=== PATIENT | female | born 1995 | race Caucasian/White ===

== ENCOUNTER 2022-07-25 11:41 | Outpatient (REF) | payer OTHER, SELFPAY ==
[2022-07-25 13:14] LABS: *AMPHETAMINES SCREEN URINE Negative (Negative); *BARBITURATES SCREEN URINE Negative (Negative); *BENZODIAZEPINES SCREEN URINE Negative (Negative); Cannabinoids THC Negative (Negative); Cocaine Screen,Urine Negative (Negative); METHADONE URINE SCREEN Negative (Negative); OPIATES URINE SCREEN Negative (Negative); Tricyclic Antidepressants Negative (Negative)
[2022-08-03 12:59] LABS: Buprenorphine Negative ng/mL (Cutoff: 5.0); Norbuprenorphine Negative ng/mL (Cutoff: 2.5)
== END 2022-07-25 11:42 | disposition home or self-care (01) ==
LOC: LBN 11:41
PROVIDERS: Visit Provider Advanced Practice Midwife
DX: Z34.90 Encounter for supervision of normal pregnancy, unspecified, unspecified trimester (principal)
CPT/HCPCS: 80307; 80348; 87081

== ENCOUNTER 2022-08-02 02:21 | Outpatient (CLI) | payer OTHER, SELFPAY ==
[2022-08-02 15:53] LABS: HCT 38.2 % (36.0-46.0); HGB 12.9 g/dL (11.2-15.7); MCH 30.2 pg (27.0-33.0); MCHC 33.8 % (32.0-36.0); MCV 90 fL (80-95); Platelet Count 126 10^3/uL (130-400); RBC 4.27 10^6/uL (3.93-5.22); RDW 12.2 % (11.7-14.6); RDW-SD 40.1 fL; WBC 7.62 10^3/uL (4.4-10.8)
[2022-08-04 09:48] LABS: Hep B Core Antibody Negative (Negative)
[2022-08-04 10:18] LABS: Varicella IgG Antibody Positive (See Note)
== END 2022-08-02 02:22 | disposition home or self-care (01) ==
LOC: LBO 02:21
PROVIDERS: Advanced Practice Midwife; Visit Provider Advanced Practice Midwife
DX: Z34.93 Encounter for supervision of normal pregnancy, unspecified, third trimester (principal); Z3A.36 36 weeks gestation of pregnancy
CPT/HCPCS: 36415; 85027; 86704; 86787; 86850; 86900; 86901

== ENCOUNTER 2022-08-17 12:23 | Outpatient (CLI) | payer OTHER, SELFPAY ==
[2022-08-17 11:39] LABS: HCT 38.2 % (36.0-46.0); HGB 12.8 g/dL (11.2-15.7); MCH 30.3 pg (27.0-33.0); MCHC 33.5 % (32.0-36.0); MCV 90 fL (80-95); MPV 12.3 fL (8.0-11.0); Platelet Count 116 10^3/uL (130-400); RBC 4.23 10^6/uL (3.93-5.22); RDW 12.4 % (11.7-14.6); RDW-SD 40.2 fL; WBC 7.47 10^3/uL (4.4-10.8)
== END 2022-08-17 12:24 | disposition home or self-care (01) ==
LOC: LBO 12:27
PROVIDERS: Visit Provider Advanced Practice Midwife
DX: Z34.93 Encounter for supervision of normal pregnancy, unspecified, third trimester (principal); Z3A.38 38 weeks gestation of pregnancy
CPT/HCPCS: 36415; 85027

== ENCOUNTER 2022-08-27 13:52 | Inpatient (IN) | payer OTHER, SELFPAY ==
[2022-08-27] VITALS (19 sets, daily range): BP systolic 110–157; BP diastolic 66–84; PULSE 74–110; RESP 18; TEMP 36.5–37.1; O2SAT 100
[2022-08-27 13:33] LABS: ROM Plus Positive
[2022-08-27 13:48] LABS: Abs Immature Grans 0.05 10^3/uL (0.0-0.06); Absolute Basophil Count 0.01 10^3/uL (0.0-0.2); Absolute Eosinophil Count 0.04 10^3/uL (0.0-0.7); Absolute Lymphocyte Count 1.19 10^3/uL (1.2-3.4); Absolute Monocyte Count 0.58 10^3/uL (0.1-0.8); Absolute Neutrophil Count 8.51 10^3/uL (1.2-6.7); Basophils % 0.1; Eosinophils % 0.4; HCT 36.4 % (36.0-46.0); HGB 12.3 g/dL (11.2-15.7); Immature Grans % 0.5; Lymphocytes % 11.5; MCH 30.5 pg (27.0-33.0); MCHC 33.8 % (32.0-36.0); MCV 90 fL (80-95); MPV 12.3 fL (8.0-11.0); Monocytes % 5.6; Neutrophils % 81.9; Platelet Count 110 10^3/uL (130-400); RBC 4.03 10^6/uL (3.93-5.22); RDW 12.2 % (11.7-14.6); WBC 10.38 10^3/uL (4.4-10.8)
--- NOTE | 2022-08-27 13:53 | HPE_ITS ---
Date of service: 08/27/22 Time of Service: 13:53 Assessment and Plan Assessment and plan (1) Spontaneous onset of labor: Status: Acute Assessment and plan: Admit to Center. Comfort measures. Alana has a marketing communications associate who will be attending the labor and . Anticipate . (2) SPROM (prolonged spontaneous rupture of membranes): Status: Acute Assessment and plan: Discussed augmentation of labor if labor does not progress spontaneously. (3) Gestational thrombocytopenia: Status: Acute Assessment and plan: Platelets 110. preeclampsia panel pending with urinalysis. Dr. Foster was notified of platelet count and patients admission and anesthesia was also notified. OB-HPI Labor/Delivery History of Present Illness Reason for Visit: Labour Chief Complaint: Uterine Contractions; Suspected Rupture of Membranes , Associated Signs and Symptoms of Suspected ROM: none ; Maternal Discomfort (clear fluid) , Associated Signs and Symptoms of Maternal Discomfort: contractions. TICO Calculator Estimated Delivery Date Method Current WG Current Estimate 08/27/22 LMP (Certain) 40w 0d Other Estimates 08/29/22 Ultrasound #1 39w 5d History of Present Expected Delivery Route/Plan - CNM FOB - [facility] Doesn't want to know gender, will circ if male Interested in water , has a marketing communications associate, sent preferences via portal GBS negative Specific Issues/Plan 1. Received care in [place], returned to [facility] at 35 weeks. 2. Low back pain - 2 herniated discs L4-L5, S-1, plan [employer] consult prior to delivery 3. CfDNA- WNL in [place] 4. Anterior uterine fibroid - will review [place] records from [place] when available 5. Mild GestTP at 36 wks, plts @ 126. Will discuss w/pt and recheck in 2-3 wks; [id number]/[id number] 5a. Repeat @ 40 wks and when admitted in labor; if <100,000 consult w/OB & anesthesia PFS All Active Problems (Updated 08/27/22 @ 13:59 by Adilene Mcgee CNM) SPROM (prolonged spontaneous rupture of membranes) (Acute) Spontaneous onset of labor (Acute) Gestational thrombocytopenia (Acute) Low back pain (Acute) 2 herniated disks. (Acute) Social History Smoking/Tobacco Use Status: Never Smoking risk assessment performed?: Yes Alcohol Intake: never Drug use: Never Substance use type: does not use Do you feel safe at home: Yes Do you feel safe in your relationship?: Yes History History 1 Para 0 Hx # Term Pregnancies 0 Multiple births 0 Hx # Pregnancies 0 Ectopic pregnancies 0 AB induced 0 Hx Number of Living Children 0 AB spontaneous 0 Meds Allergies and Home Medications Allergies Allergy/AdvReac Type Severity Reaction Status Date / Time No Known Allergies Allergy Verified 08/24/22 10:50 Home Medications Medication Instructions Recorded Confirmed Type Naturello 3 tab PO DAILY 01/16/22 08/24/22 History docosahexaenoic acid 200 mg See Rx Instructions PO DAILY 01/16/22 08/24/22 History capsule ( DHA) Exam Physical Exam Vital signs: Pulse BP 85 135/84 08/27/22 13:12 08/27/22 13:12 Constitutional Constitutional: mild distress Detailed Labor and Delivery Exam Effacement (%): 80 station: +1 Cervix position: posterior Consistency: soft Lockhart Score: Cervical Points Exam 0 1 2 3 Dilation Closed 1-2cm 3-4 cm 5-6cm Effacement 0-30% 40-50% 60-70% 80% Consistency Firm Medium Soft Station -3 -2 -1,0 +1,+2 Position Posterior Mid Anterior Amniotic Membrane Status: Ruptured Rupture Method: Spontaneous Amniotic Fluid: Clear Pooling: Positive ROM Plus: Positive Monitor Mode: External Contraction Frequency(min): evry 3 minutes Contraction Duration(sec): 60 Contraction Intensity: Mild/Moderate Comments: Unable to reach cervical os due to extremely posterior cervix. Fetus A Heart Rate Baseline: 130 Monitor Accelerations: 15 X 15 Monitor Decelerations: None Variability: Moderate (6-25 BPM) Presentation: Vertex Categories: Category I Date of Membrane Rupture: 08/27/22 Time of Membrane Rupture: 03:30 Respiratory Exam Respiratory Exam: Normal Cardiovascular Exam Cardiovascular Exam: Normal Abdominal Exam Abdominal Exam: Normal Exam Exam: Normal Extremities Exam Extremities Exam: Normal Skin Exam Skin Exam: Normal Psychiatric Exam Psychiatric Exam: Normal Results Abnormal Lab Findings: Abnormal Labs 08/27/22 13:30 Plt Count 110 L MPV 12.3 H Absolute Neutrophils 8.51 H Absolute Lymphocytes 1.19 L Risk Assessment Risk for Shoulder Dystocia 40 Weeks: NEGATIVE FOR: EFW> 4500 gms, Maternal Weight Gain >40lb or Post Dates Delivery Plan @ 40 wks: Risk for Pre-Eclampsia Daily Dose ASA Indicated: No Yes, if one or more: NEGATIVE FOR: Hx Pre-E/Gest HTN, Chronic HTN, Multiple Gestation, Pre-gestational DM, Renal Disease, Systemic Lupus or APA Syndrome Yes, if 2 or more: POSITIVE FOR: Nulliparity; NEGATIVE FOR: Age>= 35 yrs, >10yr btwn pregnancies, BMI>30, ethinicty, Mother/Sister w/ Pre-E or Previous IUGR Risk for Post- Hemorrhage At Risk?: No Risks Reviewed Risks Reviewed Upon Admission: Yes
[2022-08-27 13:58] LABS: ALT 32 U/L (14-59); AST 37 U/L (15-37); Albumin 2.8 g/dL (3.4-5.0); Alkaline Phosphatase 145 U/L (46-116); Anion Gap 6.9 mmol/L (3-11); BUN 13 mg/dL (7-18); Bilirubin, Total 0.4 mg/dL (0.2-1.0); CO2 27.1 mmol/L (21.0-32.0); CREATININE 0.8 mg/dL (0.55-1.02); Chloride 101 mmol/L (98-107); Estimated GFR 104.15 (mL/min/1.73m2); Glucose 82 mg/dL (74-106); Sodium 135 mmol/L (136-145); Total Protein 6.6 g/dL (6.4-8.2); Uric Acid 4.2 mg/dL (2.6-6.0)
--- NOTE | 2022-08-27 15:55 | W.OBNST ---
Date of service: 08/27/22 Time of Service: 14:00 NST Evaluation Reason for NST Reasons for Nonstress Test: OTHER, SEE COMMENT Reason for NST Other: rule out labor Gestational Age Gestational Age in Weeks and Days: 40 Weeks and 0Days Test and Monitor Explained Test/Monitor Explained: Test Explained, Monitor Explained and Patient Verbalized Understanding Vital Signs Temperature: 98.2 F NST Information Date on Monitor: 08/27/22 Time on Monitor: 13:04 Date off Monitor: 08/27/22 Time off Monitor: 13:31 Total Time on Monitor: 27 NST Interventions: PO Hydration Contraction Frequency: 2-3 minutes NST Evaluation Patient States Movement: Present FHR Baseline: 125 Variability: Moderate 6-25 bpm Accelerations: 15x15 Decelerations: None NST Results: Reactive Note Ultrasound Done: N/A. NST Note Note: NST and ROM plus. ROM reported at 0330. ROM plus positive and irregular mild/mod contractions. Admitted in early labor NST Reviewed and Verified by: Adilene Mcgee
[2022-08-27 17:09] LABS: Bilirubin Negative (Negative); Blood Negative (Negative); Clarity Sl Cloudy (Clear); Glucose Negative (Negative); Ketones Negative (Negative); Leukocyte Esterase Negative (Negative); Nitrite Negative (Negative); Urobilinogen 0.2 mg/dL (Up to 0.2)
--- NOTE | 2022-08-27 18:25 | PGE_ITS ---
Date of service: 08/27/22 Time of Service: 18:26 Pelvic Exam Dilation: 6 Effacement (%): 90 station: +1 Cervix Position: posterior Consistency: soft Contractions Monitor Mode: External Contraction Frequency(min): every 3 min Contraction Duration(sec): 60 Intensity: Strong Fetus A Monitor: External (US) Heart Rate Baseline: 110 Presentation: Vertex Variability: Moderate (6-25 BPM) Categories: Category I Accelerations: Present Decelerations: None Assessment and Plan Assessment and plan (1) Spontaneous onset of labor: Status: Acute Assessment and plan: Anticpate Darcie Warner requested the tub for comfort and is experiencing good relief. She has a strong urge to push. Objective Abnormal lab results 08/27/22 08/27/22 Range/Units 13:30 13:30 Plt Count 110 L (130-400) 10^3/uL MPV 12.3 H (8.0-11.0) fL Absolute Neutrophils 8.51 H (1.2-6.7) 10^3/uL Absolute Lymphocytes 1.19 L (1.2-3.4) 10^3/uL Sodium 135 L (136-145) mmol/L Alkaline Phosphatase 145 H (46-116) U/L Albumin 2.8 L (3.4-5.0) g/dL Temp Pulse Resp BP Pulse Ox 98.2 F 76 18 124/69 100 08/27/22 17:39 08/27/22 16:30 08/27/22 14:30 08/27/22 16:30 08/27/22 14:30 Laboratory Results WBC 10.38 10^3/uL (4.4-10.8) 08/27/22 13:30 RBC 4.03 10^6/uL (3.93-5.22) 08/27/22 13:30 Hgb 12.3 g/dL (11.2-15.7) 08/27/22 13:30 Hct 36.4 % (36.0-46.0) 08/27/22 13:30 MCV 90 fL (80-95) 08/27/22 13:30 MCH 30.5 pg (27.0-33.0) 08/27/22 13:30 MCHC 33.8 % (32.0-36.0) 08/27/22 13:30 RDW 12.2 % (11.7-14.6) 08/27/22 13:30 Plt Count 110 10^3/uL (130-400) L 08/27/22 13:30 MPV 12.3 fL (8.0-11.0) H 08/27/22 13:30 Immature Gran % 0.5 08/27/22 13:30 Neutrophils % 81.9 08/27/22 13:30 Lymphocytes % 11.5 08/27/22 13:30 Monocytes % 5.6 08/27/22 13:30 Eosinophils % 0.4 08/27/22 13:30 Basophils % 0.1 08/27/22 13:30 Nucleated RBC % 0.0 % (0.0-0.3) 08/27/22 13:30 Absolute Neutrophils 8.51 10^3/uL (1.2-6.7) H 08/27/22 13:30 Absolute Lymphocytes 1.19 10^3/uL (1.2-3.4) L 08/27/22 13:30 Absolute Monocytes 0.58 10^3/uL (0.1-0.8) 08/27/22 13:30 Absolute Eosinophils 0.04 10^3/uL (0.0-0.7) 08/27/22 13:30 Absolute Basophils 0.01 10^3/uL (0.0-0.2) 08/27/22 13:30 Sodium 135 mmol/L (136-145) L 08/27/22 13:30 Potassium 4.0 mmol/L (3.5-5.1) 08/27/22 13:30 Chloride 101 mmol/L (98-107) 08/27/22 13:30 Carbon Dioxide 27.1 mmol/L (21.0-32.0) 08/27/22 13:30 Anion Gap 6.9 mmol/L (3-11) 08/27/22 13:30 BUN 13 mg/dL (7-18) 08/27/22 13:30 Creatinine 0.8 mg/dL (0.55-1.02) 08/27/22 13:30 Est GFR (CKD-EPI 2020) 104.15 (mL/min/1.73m2) 08/27/22 13:30 Glucose 82 mg/dL (74-106) 08/27/22 13:30 Uric Acid 4.2 mg/dL (2.6-6.0) 08/27/22 13:30 Calcium 9.0 mg/dL (8.5-10.1) 08/27/22 13:30 Total Bilirubin 0.4 mg/dL (0.2-1.0) 08/27/22 13:30 AST 37 U/L (15-37) 08/27/22 13:30 ALT 32 U/L (14-59) 08/27/22 13:30 Alkaline Phosphatase 145 U/L (46-116) H 08/27/22 13:30 Total Protein 6.6 g/dL (6.4-8.2) 08/27/22 13:30 Albumin 2.8 g/dL (3.4-5.0) L 08/27/22 13:30 Urine Color Yellow (Yellow) 08/27/22 13:55 Urine Clarity Sl Cloudy (Clear) 08/27/22 13:55 Urine pH 7.0 (5-8) 08/27/22 13:55 Ur Specific [place] 1.020 (1.005-1.025) 08/27/22 13:55 Urine Protein Negative mg/dL (Negative) 08/27/22 13:55 Urine Ketones Negative mg/dL (Negative) 08/27/22 13:55 Urine Blood Negative (Negative) 08/27/22 13:55 Urine Nitrite Negative (Negative) 08/27/22 13:55 Urine Bilirubin Negative (Negative) 08/27/22 13:55 Urine Urobilinogen 0.2 mg/dL (Up to 0.2) 08/27/22 13:55 Ur Leukocyte Esterase Negative (Negative) 08/27/22 13:55 Urine Glucose Negative mg/dL (Negative) 08/27/22 13:55 Membranes Rupture Positive 08/27/22 13:05 Patient ABO/Rh O Positive 08/27/22 13:30 Antibody Screen NEGATIVE 08/27/22 13:30 Subjective Interval history since last seen: Alana used the shower and various ppositions for comfort. She has a gauge maker apprentice named Lroelei assisting her. began feeling very strong contractions. She was examined by RN and was 6-7 cms. Results Hemoglobin/Hematocrit: Hgb 12.3 g/dL (11.2-15.7) 08/27/22 13:30 Hct 36.4 % (36.0-46.0) 08/27/22 13:30 Abnormal Lab Findings: Abnormal Labs 08/27/22 08/27/22 13:30 13:30 Plt Count 110 L MPV 12.3 H Absolute Neutrophils 8.51 H Absolute Lymphocytes 1.19 L Sodium 135 L Alkaline Phosphatase 145 H Albumin 2.8 L
[2022-08-27] MEDS: Oxytocin 10 UNITS/ML VIAL IM (19:54)
[2022-08-27] MEDS: Lidocaine 1% Multi-Dose 20 ML VIAL IJ (20:00)
--- NOTE | 2022-08-27 20:41 | OBVDS_ITS ---
Date of service: 08/27/22 Time of Service: 20:41 OB Labor/ Delivery Information Baby A Delivery Delivery Method: Spontaneaous Presentation: Vertex Cephalic Position: Vertex Vertex Position: Left Occipital Anterior Amniotic Fluid: Clear Estimated Blood Loss: 250 Delivery Outcome: Liveborn Complications: none Transferred: Remains with Mother Note: Alana used the tub with good effect. She moved to the toilet and began bearing down. FHTs 110s during first stage of labor. FHTs 105-110 in second stage by doppler. Alana moved to the bed to be fully dilated and +3 station and continued pushing. Second stage huddle was done. Spontaneous delivery of male infant delivered in ELLEN position. Baby was placed on mother's abdomen and dried and stimulated. Spontaneous cry. Cord was clamped and cut by the baby's father after it stopped pulsing . The placenta delivered spontaneously and appears to by intact with a three vessel cord. Pitocin 10 units IM was administered after delivery of the placenta. The perineum was inspected and a first degree laceration was repaired under local anesthetic which Alana tolerated well . The baby did breastfeed. After delivery, Mother and baby and father of the baby were stable and bonding well in the delivery room and there were no complications. Providers Nurse Pharmacy Technician Instructor: Adilene Mcgee Nurse: Denise Boyer Nurse: Tracey Fitzpatrick Labor/Delivery Information Number of Babies in Womb: 1 Steroids Given: None Reason Steroids Not Administered: N/A Group Beta Strep: Negative Rubella Status: Immune Varicella Immunity: Immune Born En Route: No Maternal Complications: Premature Rupture of Membranes (16+ hours) Stages of Labor Onset of Labor Date: 08/27/22 Onset of Labor Time: 03:15 Complete Dilatation Date: 08/27/22 Complete Dilatation Time: 19:20 Labor - Stage 1 Duration: 16 hours and 5 minutes ROM Baby A: 08/27/22 ROM Baby A: 03:30 ROM Total Time- Baby A: [id number] Delivery Date-Baby A: 08/27/22 Infant Delivery Time-Baby A: 19:50 Labor Stage 2 Duration: 30 minutes Placenta Delivery Date-Baby A: 08/27/22 Placenta Delivery Time-Baby A: 20:00 Labor-Stage 3 Duration: 10 minutes Total Length of Labor-Baby A: 16 hours and 35 minutes Placenta Cultured: No Placenta Status: Delivered Baby A Gender: Male Gestational Status: Term (39-41.6 wks) Gestational Age in Weeks/Days: 40 Weeks and 0 Days
--- NOTE | 2022-08-27 20:47 | W.OBNST ---
Date of service: 08/27/22 Time of Service: 20:47 NST Evaluation Reason for NST Reasons for Nonstress Test: OTHER, SEE COMMENT Reason for NST Other: rule out labor Gestational Age Gestational Age in Weeks and Days: 40 Weeks and 0Days Test and Monitor Explained Test/Monitor Explained: Test Explained, Monitor Explained and Patient Verbalized Understanding Vital Signs Temperature: 98.2 F NST Information Date on Monitor: 08/27/22 Time on Monitor: 13:04 Date off Monitor: 08/27/22 Time off Monitor: 13:31 Total Time on Monitor: 27 NST Interventions: PO Hydration Contraction Frequency: 2-3 minutes NST Evaluation Patient States Movement: Present FHR Baseline: 125 Variability: Moderate 6-25 bpm Accelerations: 15x15 Decelerations: None NST Results: Reactive Note Ultrasound Done: N/A. NST Note Note: Alana reported strong contractions at home and a small amount of fluid leaking. ROM plus is neg. neg pooling. Her contractions have stopped. She declines an exam tonight. Reviewed signs of labor. RTO for visit this week NST Reviewed and Verified by: Adilene Mcgee
[2022-08-27] MEDS: Hamamelis Leaf/Glycerin 100 EACH BOX PR (21:49)
[2022-08-27] MEDS: Dibucaine 1% 28 GM TUBE TP (21:50)
[2022-08-28] MEDS: Ibuprofen 600 MG TAB PO (00:14)
[2022-08-28] MEDS: Acetaminophen 325 MG TAB 650 MG PO (00:14)
[2022-08-28 04:00] VITALS: BP 99/50; PULSE 77; RESP 16; TEMP 36.9
[2022-08-28 06:59] LABS: HCT 34.6 % (36.0-46.0); HGB 12.1 g/dL (11.2-15.7); MCH 30.9 pg (27.0-33.0); MCV 89 fL (80-95); MPV 12.1 fL (8.0-11.0); Platelet Count 120 10^3/uL (130-400); RBC 3.91 10^6/uL (3.93-5.22); RDW 12.2 % (11.7-14.6); RDW-SD 39.6 fL; WBC 15.62 10^3/uL (4.4-10.8)
[2022-08-28 10:49] VITALS: BP 110/60; PULSE 78; RESP 17; TEMP 37
--- NOTE | 2022-08-28 14:53 | W.PM.OBPNV1 ---
Date of service: 08/28/22 Time of Service: 14:53 Assessment and Plan Assessment and plan (1) Term of male : Status: Acute Assessment and plan: Caring for baby independently. Pain is managed well with oral analgesics. Voiding without difficulty. well. A - stable mother and baby , Post day 1 P - Discharge to home tomorrow. Routine post instructions. [facility] (2) Gestational thrombocytopenia: Status: Acute Assessment and plan: Platelets 120 today. No follow up indicated until post . Subjective Subjective Interval history: Alana feels well and is her baby without difficulty. She is pleased with her experience Patient's Mood: excellent baby status: Doing well and Nursing well [place] feeding status: Exclusively breast feeding Exam Physical Exam Vital signs: Temp Pulse Resp BP Pulse Ox 98.6 F 78 17 110/60 100 08/28/22 10:49 08/28/22 10:49 08/28/22 10:49 08/28/22 10:49 08/27/22 14:30 Respiratory Exam Respiratory Exam: Normal Cardiovascular Exam Cardiovascular Exam: Normal Fundal Exam Fundus: Below Umbilicus and Firm Exam Perineum: Repair Intact External: Absent erythema or ecchymosis Extremities Exam Extremity Exam: Normal Skin Exam Skin Exam: Normal Psychiatric Exam Psychiatric Exam: Normal Results Hemoglobin/Hematocrit: Hgb 12.1 g/dL (11.2-15.7) 08/28/22 06:40 Hct 34.6 % (36.0-46.0) L 08/28/22 06:40 Abnormal Lab Findings: Abnormal Labs 08/27/22 08/27/22 08/28/22 13:30 13:30 06:40 WBC 15.62 H RBC 3.91 L Hct 34.6 L Plt Count 110 L 120 L MPV 12.3 H 12.1 H Absolute Neutrophils 8.51 H Absolute Lymphocytes 1.19 L Sodium 135 L Alkaline Phosphatase 145 H Albumin 2.8 L
[2022-08-28 21:20] VITALS: BP 129/73; PULSE 80; RESP 18; TEMP 37.2
[2022-08-29] MEDS: Hamamelis Leaf/Glycerin 100 EACH BOX PR (08:45)
--- NOTE | 2022-08-29 11:14 | DSE_ITS ---
Date of service: 08/29/22 Time of Service: 11:14 DS: Diagnosis Discharge Diagnosis (1) Term of male : Status: Acute Asessment and Plan: Caring for baby independently. Pain is managed well with oral analgesics. Voiding without difficulty. well. A - stable mother and baby , Post day 2 P - Discharge to home today. Routine post instructions. [facility]. (2) Gestational thrombocytopenia: Status: Acute Asessment and Plan: Follow up at [facility] Discharge Plan Disposition Patient Disposition: Home Condition: Good Discharge Details Reason For Visit: Labor Admit Date/Time: 08/27/22 13:52 Admit Provider: Adilene Mcgee Attending Provider: Adilene Mcgee Primary Care Provider: Unknown,Unknown Home Meds and New Rx's Prescriptions: No Action DHA 200 mg capsule See Rx Instructions PO DAILY Rx Instructions: 1 tablet orally daily; Naturello 3 tab PO DAILY Discharge Instructions Stand Alone Forms: BC Instructions, BC Post Vaginal Deliver Activity:: Activity as Tolerated Equipment/Supplies:: No Equipment Needed Diet:: As Tolerated Discharge Orders Discharge Orders: Discharge Order (Routine); Ordered 08/29/22 Ordered By: Adilene Mcgee Discharge Data Discharge Date/Time-TO BE ENTERED AT DEPARTURE: 08/29/22 10:42 OB:DS Summary Summary Vaginal Delivery Method: Spontaneaous Laceration Description: Perineal Laceration Extension: First Degree Contraception Discussed Contraception Discussed: Yes Contraceptive Plan: IUD, [place] Gender-Baby A: Male weight: 6 lb 13.702 oz Status at Discharge Functional status at discharge: independent ambulation Overall status at discharge: patient is back to baseline Mental Status: mental status grossly normal Speech and Movement: speech and movement normal Mood: congruent mood Affect: normal affect Exam Physical Exam Vital signs: Temp Pulse Resp BP Pulse Ox 98.9 F 80 18 129/73 100 08/28/22 21:20 08/28/22 21:20 08/28/22 21:20 08/28/22 21:20 08/27/22 14:30 Respiratory Exam Respiratory Exam: Normal Cardiovascular Exam Cardiovascular Exam: Normal Fundal Exam Fundus: Below Umbilicus and Firm Rectal Exam Rectal Exam: Normal Extremities Exam Extremity Exam: Normal Skin Exam Skin Exam: Normal Psychiatric Exam Psychiatric Exam: Normal PFSH All Active Problems (Updated 08/28/22 @ 14:55 by Adilene Mcgee CNM) Term of male (Acute) Gestational thrombocytopenia (Acute) Medical History (Updated 08/28/22 @ 14:55 by Adilene Mcgee CNM) Low back pain 2 herniated disks. Social History Smoking/Tobacco Use Status: Never Smoking risk assessment performed?: Yes Alcohol Intake: never Drug use: Never Substance use type: does not use Do you feel safe at home: Yes Do you feel safe in your relationship?: Yes History History 1 Para 0 Hx # Term Pregnancies 0 Multiple births 0 Hx # Pregnancies 0 Ectopic pregnancies 0 AB induced 0 Hx Number of Living Children 0 AB spontaneous 0 DS: Data Vitals/I&O Vitals and I&O: Vital Signs Temperature 98.9 F 08/28/22 21:20 Temperature 98.2 F 08/27/22 20:49 Temperature Source Oral 08/28/22 21:20 Pulse 80 08/28/22 21:20 Pulse Rhythm Regular 08/29/22 08:00 Respiratory Rate 18 08/28/22 21:20 Respiratory Depth Normal 08/29/22 08:00 Blood Pressure 129/73 08/28/22 21:20 Blood Pressure Mean 91 08/28/22 21:20 Pulse Oximetry 100 08/27/22 14:30 Comment Tub Temperature 99.6 degrees F. 08/27/22 18:33 Intake & Output 08/28/22 08/28/22 08/29/22 11:59 23:59 11:59 Output Total 1250 / 1250 Balance -1250 / -1250 Output: Urine 1250 / 1250 Other: Urine Color Yellow
== END 2022-08-29 10:42 | disposition home or self-care (01) | DRG 806 ==
LOC: OBS 08-28 08:50 → BCD 08-28 11:38
PROVIDERS: Admitting Provider Advanced Practice Midwife; Visit Provider Advanced Practice Midwife
DX: O42.92 Full-term premature rupture of membranes, unspecified as to length of time between rupture and onset of labor (principal); O99.12 Other diseases of the blood and blood-forming organs and certain disorders involving the immune mechanism complicating childbirth; Z37.0 Single live birth; D69.6 Thrombocytopenia, unspecified; Z3A.40 40 weeks gestation of pregnancy; O70.0 First degree perineal laceration during delivery; O34.13 Maternal care for benign tumor of corpus uteri, third trimester; D25.9 Leiomyoma of uterus, unspecified
CPT/HCPCS: 36415; 80053; 84112; 85027; 86850; 86900; 86901; 59025; 81003; 84550; 85025; J2590; J3490